=== PATIENT | male | born 1970 | race African-American/Black ===

== ENCOUNTER 2019-06-19 18:12 | Emergency (ER) | payer SELFPAY ==
[~2019-06-19] VITALS: Ht 193 cm; Wt 109.0 kg
[2019-06-19 18:59] LABS: BASO # 0.1 x10^3/uL (0.0-0.2); BASO % 1 % (0-3); EOS # 0.1 x10^3/uL (0.0-0.7); EOS % 2 % (0-3); HEMATOCRIT 46.8 % (39.0-53.0); HEMOGLOBIN 16.3 g/dL (13.0-17.5); LYMPH % 37 % (24-48); MEAN CORPUSCULAR HEMOGLOBIN 33 pg (25-35); MEAN CORPUSCULAR HGB CONC 35 g/dL (31-37); MEAN CORPUSCULAR VOLUME 94 fL (79-100); MONO # 0.6 x10^3/uL (0.0-1.1); MONO % 8 % (0-9); NEUT # 4.2 x10^3/uL (1.8-7.7); NEUT % 52 % (31-73); PLATELET COUNT 246 x10^3/uL (140-400); RED BLOOD COUNT 4.97 x10^6/uL (4.30-5.70)
[2019-06-19] MEDS ORDERED: IV NORMAL SALINE 1000ML BAG 1,000 ML IV ONE (19:00)
[2019-06-19 19:01] LABS: BILIRUBIN,URINE NEGATIVE (NEG); CLARITY,URINE CLEAR; COLOR,URINE YELLOW; NITRITE,URINE NEGATIVE (NEG); PROTEIN,URINE NEGATIVE (NEG-TRACE)
--- NOTE | 2019-06-19 19:04 | PHYS DOC ---
Past Medical History Past Medical History: Diabetes-Type II Past Surgical History: Other Additional Past Surgical Histo: bilateral kidney stents, for stones Smoking Status: Never Smoker Alcohol Use: Rarely Drug Use: None General Adult EDM: Chief Complaint: WEAKNESS/GENERALIZED HPI: HPI: Patient is a 49 year old male who presents with this morning got up and went to the gym and workout. He states he went home and felt pretty generalized weakness and fatigue. He states he laid down and went to sleep and had a "weird dream" and was startled awake. He states that he continues just to feel generalized weakness so he took his blood sugar and it was 250. He is a type II diabetic. He states that he feels like his blood pressure has been running a little high also. He states he has been very stressed about his children. Patient denies chest pain, abdominal pain, nausea, vomiting, diarrhea, fever, cough, shortness of breath, dizziness, numbness or tingling, focal weakness, vision changes, headache. Review of Systems: Review of Systems: Musculoskeletal: Denies back pain or joint pain. Generalized weakness. [] Heart Score: Risk Factors: Risk Factors: DM, Current or recent (<one month) smoker, HTN, HLP, family history of CAD, obesity. Risk Scores: Score 0 - 3: 2.5% MACE over next 6 weeks - Discharge Home Score 4 - 6: 20.3% MACE over next 6 weeks - Admit for Clinical Observation Score 7 - 10: 72.7% MACE over next 6 weeks - Early Invasive Strategies Current Medications: Current Medications Medications (Trade) Dose Ordered Sig/Shila Start Time Stop Time Status Last Admin Dose Admin Sodium Chloride 1,000 ml @ 1,000 mls/hr 1X ONCE 06/19/19 19:00 06/19/19 19:59 UNV Allergies: Allergies: Allergies Coded Allergies Type Severity Reaction Last Updated Verified No Known Drug Allergies 11/07/13 No Physical Exam: PE: Constitutional: Well developed, well nourished, no acute distress, non-toxic appearance. [] HENT: Normocephalic, atraumatic, bilateral external ears normal, oropharynx moist, no oral exudates, nose normal. [] Eyes: PERRLA, EOMI, conjunctiva normal, no discharge. [] Neck: Normal range of motion, no tenderness, supple, no stridor. [] Cardiovascular:Heart rate regular rhythm, no murmur [] Lungs & Thorax: Bilateral breath sounds clear to auscultation [] Abdomen: Bowel sounds normal, soft, no tenderness, no masses, no pulsatile masses. [] Skin: Warm, dry, no erythema, no rash. [] Back: No tenderness, no CVA tenderness. [] Extremities: No tenderness, no cyanosis, no clubbing, ROM intact, no edema. [] Neurologic: Alert and oriented X 3, normal motor function, normal sensory function, no focal deficits noted. [] Psychologic: Affect normal, judgement normal, mood normal. Normal physical exam [] EKG: EK and read by Dr Garcia. NSR and no STEMI[] Radiology/Procedures: Radiology/Procedures: [] Course & Med Decision Making: Course & Med Decision Making Pertinent Labs and Imaging studies reviewed. (See chart for details) Alert and oriented. Speaks in full clear sentences. Ambulatory with a steady gait. Skin pink warm and dry. Vital signs are within normal limits. Lungs are clear to auscultation all lobes. Abdomen is soft and nontender. No extremity swelling. PERRLA. Patient is hemodynamically stable. Chest x ray is read by Dr Garcia as no acute findings. Patient is discharged and can follow up with primary care physician. [] Ivon Disclaimer: Ivon Disclaimer: This electronic medical record was generated, in whole or in part, using a voice recognition dictation system. Departure Departure Impression: Primary Impression: Generalized weakness Disposition: 01 HOME, SELF-CARE Condition: STABLE Referrals: NO PCP (PCP) Patient Instructions: Weakness, [id number] Additional Instructions: Follow-up with your primary care provider. Drink plenty of fluids. Rest as much as possible. CONG GARRETT MICROGRAPHICS SERVICES SUPERVISOR Jun 19, 2019 19:04
[2019-06-19 19:05] LABS: BACTERIA,URINE 0 /HPF (0-FEW); RBC,URINE 0 /HPF (0-2); WBC,URINE 0 /HPF (0-4)
[2019-06-19 19:12] LABS: BARBITURATES NEG (NEG); BENZODIAZEPINES NEG (NEG); CANNABINOIDS NEG (NEG); COCAINE NEG (NEG); METHADONE NEG (NEG); OPIATES NEG (NEG); PHENCYCLIDINE NEG (NEG)
[2019-06-19 19:12] LABS: CALCIUM 9.4 mg/dL (8.5-10.1); CREATININE 1.2 mg/dL (0.7-1.3); GFR 78.5; POTASSIUM 3.7 mmol/L (3.5-5.1)
[2019-06-19 19:16] LABS: AMPHETAMINE/METHAMPHETAMINE NEG (NEG)
[2019-06-19 19:18] LABS: ALBUMIN 4.6 g/dL (3.4-5.0); ALBUMIN/GLOBULIN RATIO 1.4 (1.0-1.7); TOTAL BILIRUBIN 1.2 mg/dL (0.2-1.0); TOTAL PROTEIN 7.8 g/dL (6.4-8.2)
[2019-06-19 19:56] VITALS: BP 153/92
[2019-06-19 19:56] LABS: INFLUENZA A PATIENT NEGATIVE (NEGATIVE); INFLUENZA B PATIENT NEGATIVE (NEGATIVE)
--- NOTE | 2019-06-19 20:03 | EKG ---
[facility] [address] [place] [address] Test Date: 2019-06-19 Test Time: 19:07:31 Pat Name: LILY AYOUB Department: Room: Gender: M Speech Assistant: : 1970 Requested By: CONG GARRETT Order Number: [id number] Reading MD: Santi Zafar MD Measurements Intervals [place] Rate: 75 P: 32 MT: 174 QRS: 15 QRSD: 74 T: -1 QT: 366 QTc: 411 Interpretive Statements SINUS RHYTHM Electronically Signed On 06-21-2019 13:24:44 CDT by Santi Zafar MD
--- NOTE | 2019-06-19 20:51 | RAD ---
EXAM: CHEST 1 VIEW History: Weakness COMPARISON: 11/09/2006 TECHNIQUE: Single portable radiograph of the chest FINDINGS: The cardiac silhouette is unremarkable. The lungs are clear bilaterally. The costophrenic sulci are clear and well demarcated. IMPRESSION: No radiographic evidence of an acute cardiopulmonary process. Electronically signed by: Dedrick Yates MD (06/19/2019 8:48 PM) [id number]
== END 2019-06-19 20:35 | disposition home or self-care (01) ==
LOC: ER 18:12
DX: R53.1 Weakness (principal); R53.83 Other fatigue; E11.9 Type 2 diabetes mellitus without complications; Z98.890 Other specified postprocedural states
CPT/HCPCS: 36415; 71045; 80053; 80307; 81001; 84484; 85025; 87804; 93005; 99285; J7030

== ENCOUNTER 2020-01-18 19:05 | Emergency (ER) | payer SELFPAY ==
[~2020-01-18] VITALS: Ht 188 cm; Wt 106.8 kg
--- NOTE | 2020-01-18 20:01 | PHYS DOC ---
Past Medical History Past Medical History: Diabetes-Type II, Kidney Stone, Other Additional Past Medical Histor: "diet controlled" DM Past Surgical History: Other Additional Past Surgical Histo: bilateral kidney stents, for stones Smoking Status: Never Smoker Alcohol Use: Rarely Drug Use: None General Adult EDM: Chief Complaint: ABDOMINAL PAIN HPI: HPI: Patient is a 49 year old male with no past medical history currently on no prescription medications presents with a chief complaint of chest pain and abdominal pain. Patient states he woke up around 7 AM with pain just below his clavicle bilateral across his chest. Patient also states he had some abdominal discomfort which is just left to the umbilicus. Patient states pain is been constant since onset and he rates it a 7 out of 10. He describes the pain as achy. He states he has some nausea but has not vomited denies diarrhea and states he has a little bit of shortness of breath. Patient states with deep breaths his chest discomfort returns. On palpation patient's pain is reproducible both along his anterior chest and his abdomen. Patient states he has some nausea but has not vomited. Patient also stated he noted his blood pressure to be 170s 180s systolic. Review of Systems: Review of Systems: Constitutional: Denies fever or chills. [] Eyes: Denies change in visual acuity. [] HENT: Denies nasal congestion or sore throat. [] Respiratory: Positive shortness of breath Cardiovascular: Denies edema. [Positive chest pain ] GI: Denies abdominal pain, , vomiting, bloody stools or diarrhea. [Positive nausea positive abdominal ] : Denies dysuria. [] Musculoskeletal: Denies back pain or joint pain. [positive chest wall pain] Integument: Denies rash. [] Neurologic: Denies headache, focal weakness or sensory changes. [] Endocrine: Denies polyuria or polydipsia. [] Lymphatic: Denies swollen glands. [] Psychiatric: Denies depression or anxiety. [] Heart Score: HEART Score for Chest Pain: HEART Score for Chest Pain Response (Comments) Value History Slighlty/Non-Suspicious 0 ECG Normal 0 Age >45 - < 65 1 Risk Factors No Risk Factors 0 Troponin < Normal Limit 0 Total 1 Risk Factors: Risk Factors: DM, Current or recent (<one month) smoker, HTN, HLP, family history of CAD, obesity. Risk Scores: Score 0 - 3: 2.5% MACE over next 6 weeks - Discharge Home Score 4 - 6: 20.3% MACE over next 6 weeks - Admit for Clinical Observation Score 7 - 10: 72.7% MACE over next 6 weeks - Early Invasive Strategies Allergies: Allergies: Allergies Coded Allergies Type Severity Reaction Last Updated Verified No Known Drug Allergies 11/07/13 No Physical Exam: PE: Constitutional: Well developed, well nourished, no acute distress, non-toxic appearance. [] HENT: Normocephalic, atraumatic, bilateral external ears normal, oropharynx moist, no oral exudates, nose normal. [] Eyes: PERRLA, EOMI, conjunctiva normal, no discharge. [] Neck: Normal range of motion, no tenderness, supple, no stridor. [] Cardiovascular:Heart rate regular rhythm, no murmur [] Lungs & Thorax: Bilateral breath sounds clear to auscultation [] Abdomen: Bowel sounds normal, soft, no tenderness, no masses, no pulsatile masses. [] Skin: Warm, dry, no erythema, no rash. [] Back: No tenderness, no CVA tenderness. [] Extremities: No tenderness, no cyanosis, no clubbing, ROM intact, no edema. [] Neurologic: Alert and oriented X 3, normal motor function, normal sensory function, no focal deficits noted. [] Psychologic: Affect normal, judgement normal, mood normal. [] Current Patient Data: Vital Signs: Vital Signs Date Time Temp Pulse Resp B/P (MAP) Pulse Ox O2 Delivery O2 Flow Rate FiO2 01/18/20 19:43 98.6 116 16 178/95 (122) 96 Room Air 98.6 EKG: EKG: [] Radiology/Procedures: Radiology/Procedures: [] Impression: CHEST AP ONLY Clinical Indication: Reason: chest pain Comparison: AP chest June 19, 2019. Findings: The cardiomediastinal silhouette is normal. Lungs are clear. There is no pneumothorax. No pleural effusion is appreciated. No acute bone abnormality. IMPRESSION: No acute cardiopulmonary process. Electronically signed by: Chicho Bose MD (01/18/2020 8:51 PM) [facility] Course & Med Decision Making: Course & Med Decision Making Pertinent Labs and Imaging studies reviewed. (See chart for details) [] Dragon Disclaimer: Dragon Disclaimer: This electronic medical record was generated, in whole or in part, using a voice recognition dictation system. Departure Departure Impression: Primary Impression: Musculoskeletal chest pain Additional Impression: Nonspecific abdominal pain Disposition: 01 HOME SELF CARE/HOMELESS Condition: STABLE Referrals: NO PCP (PCP) Patient Instructions: Abdominal Pain (Nonspecific), Chest Wall Pain, Musculoskeletal Pain Scripts Tramadol Hcl (ULTRAM) 50 Mg Tablet 1 TAB PO PRN Q6HRS PRN for pain MDD 4 Tablet(s) for 7 Days, #28 TAB 0 Refills Prov: CLARENCE AVILA DO 01/18/20 Cyclobenzaprine Hcl (CYCLOBENZAPRINE HCL) 10 Mg Tablet 10 MG PO TID for 10 Days, #30 TAB Prov: CLARENCE AVILA DO 01/18/20 CLARENCE AVILA DO Jan 18, 2020 20:01
[2020-01-18] MEDS ORDERED: KETOROLAC 30 MG/ML VIAL. IVP ONE (20:15)
[2020-01-18 20:20] LABS: BASO # 0.1 x10^3/uL (0.0-0.2); BASO % 1 % (0-3); EOS # 0.2 x10^3/uL (0.0-0.7); EOS % 2 % (0-3); HEMATOCRIT 43.8 % (39.0-53.0); HEMOGLOBIN 15.4 g/dL (13.0-17.5); LYMPH # 2.9 x10^3/uL (1.0-4.8); LYMPH % 35 % (24-48); MEAN CORPUSCULAR HEMOGLOBIN 34 pg (25-35); MEAN CORPUSCULAR HGB CONC 35 g/dL (31-37); MEAN CORPUSCULAR VOLUME 95 fL (79-100); MONO # 0.6 x10^3/uL (0.0-1.1); MONO % 8 % (0-9); NEUT # 4.4 x10^3/uL (1.8-7.7); NEUT % 54 % (31-73); PLATELET COUNT 232 x10^3/uL (140-400); RED BLOOD COUNT 4.59 x10^6/uL (4.30-5.70); RED CELL DISTRIBUTION WIDTH 12.4 % (11.5-14.5); WHITE BLOOD COUNT 8.1 x10^3/uL (4.0-11.0)
[2020-01-18 20:26] LABS: CALCIUM 9.3 mg/dL (8.5-10.1); CREATININE 1.1 mg/dL (0.7-1.3); GFR 86.8; POTASSIUM 3.6 mmol/L (3.5-5.1)
[2020-01-18 20:31] LABS: ALBUMIN/GLOBULIN RATIO 1.3 (1.0-1.7); TOTAL BILIRUBIN 0.7 mg/dL (0.2-1.0); TOTAL PROTEIN 7.1 g/dL (6.4-8.2)
[2020-01-18] MEDS ORDERED: ASPIRIN CHEWABLE 81 MG TABLET. PO ONE (20:45)
--- NOTE | 2020-01-18 20:54 | RAD ---
CHEST AP ONLY Clinical Indication: Reason: chest pain Comparison: AP chest June 19, 2019. Findings: The cardiomediastinal silhouette is normal. Lungs are clear. There is no pneumothorax. No pleural effusion is appreciated. No acute bone abnormality. IMPRESSION: No acute cardiopulmonary process. Electronically signed by: Chicho Bose MD (01/18/2020 8:51 PM) [facility]
[2020-01-18 21:16] VITALS: BP 151/90
[2020-01-18] MEDS ORDERED: TRAM-48 PO (21:39)
[2020-01-18] MEDS ORDERED: CYCL10TA2 PO (21:39)
--- NOTE | 2020-01-19 03:08 | EKG ---
[facility] [address] [place] [address] Test Date: 2020-01-18 Test Time: 19:53:00 Pat Name: LILY AYOUB Department: Room: Gender: M Financial Management Consultant: : 1970 Requested By: CLARENCE AVILA Order Number: [id number] Reading MD: Measurements Intervals [place] Rate: 88 P: 46 MT: 154 QRS: 42 QRSD: 72 T: -10 QT: 362 QTc: 441 Interpretive Statements SINUS RHYTHM VENTRICULAR PREMATURE COMPLEX(ES) QRS(T) CONTOUR ABNORMALITY CONSISTENT WITH ANTEROSEPTAL INFARCT PROBABLY OLD T ABNORMALITY IN ANTERIOR LEADS ABNORMAL ECG RI6.01 No previous ECG available for comparison
== END 2020-01-18 21:45 | disposition home or self-care (01) ==
LOC: ER 19:05
DX: R07.89 Other chest pain (principal); R10.33 Periumbilical pain; R06.02 Shortness of breath; E11.9 Type 2 diabetes mellitus without complications; Z98.890 Other specified postprocedural states; Z87.891 Personal history of nicotine dependence
CPT/HCPCS: 36415; 71045; 80053; 83690; 84484; 85025; 93005; 96374; 99285; J1885

== ENCOUNTER 2020-11-12 11:53 | Emergency (ER) | payer SELFPAY ==
[~2020-11-12] VITALS: Ht 193 cm; Wt 109.0 kg
[~2020-11-12 11:53] MED LIST: CYCL10TA2 PO; TRAM-48 PO
--- NOTE | 2020-11-12 14:07 | PHYS DOC ---
Past Medical History Past Medical History: Diabetes-Type II, Hypertension, Kidney Stone, Other Additional Past Medical Histor: "diet controlled" DM Past Surgical History: Other Additional Past Surgical Histo: bilateral kidney stents, for stones Smoking Status: Never Smoker Alcohol Use: Occasionally Drug Use: None General Adult EDM: Chief Complaint: HYPERTENSION HPI: HPI: 50-year-old male with a history of hypertension but has never been formally diagnosed presents the emergency department complaining of an episode of chest discomfort after he exercised yesterday that has since resolved and he no longer has chest pain today. He states "I just do not feel right ". He currently denies any shortness of breath, chest pain, abdominal pain, nausea, vomiting, diarrhea or any other symptoms. He states that he would like to get treated for his blood pressure. He is trying to follow-up with her primary care doctor but has been unable to schedule an appointment. Review of Systems: Review of Systems: All other systems reviewed as negative except for what was mentioned in the HPI. Heart Score: C/O Chest Pain: Yes HEART Score for Chest Pain: HEART Score for Chest Pain Response (Comments) Value History Slighlty/Non-Suspicious 0 ECG Normal 0 Age >45 - < 65 1 Risk Factors 1 or 2 Risk Factors 1 Troponin < Normal Limit 0 Total 2 Allergies: Allergies: Allergies Coded Allergies Type Severity Reaction Last Updated Verified No Known Drug Allergies 11/07/13 No Physical Exam: PE: Constitutional: No acute distress, non-toxic appearance. HENT: Atraumatic, bilateral external ears normal, nose normal. Eyes: PERRLA, EOMI, conjunctiva normal, no discharge. Neck: Normal range of motion, supple, no stridor. Cardiovascular: Heart rate regular rhythm. 2+ radial pulses Lungs & Thorax: No respiratory distress, symmetrical expansion. Bilateral breath sounds clear to auscultation Abdomen: Soft, no tenderness Skin: Warm, dry. Extremities: No tenderness, no cyanosis, ROM intact, no edema. Neurologic: Alert and oriented X 3, normal motor function, normal sensory function, no focal deficits noted. Non ataxic gait. GCS 15. Psychologic: Affect normal, judgment normal, mood normal. Current Patient Data: Labs: Laboratory Tests Test 11/12/20 14:00 11/12/20 14:41 SARS-CoV-2 Antigen (Rapid) Negative (NEGATIVE) White Blood Count 6.1 x10^3/uL (4.0-11.0) Red Blood Count 4.53 x10^6/uL (4.30-5.70) Hemoglobin 15.3 g/dL (13.0-17.5) Hematocrit 43.7 % (39.0-53.0) Mean Corpuscular Volume 97 fL (79-100) Mean Corpuscular Hemoglobin 34 pg (25-35) Mean Corpuscular Hemoglobin Concent 35 g/dL (31-37) Red Cell Distribution Width 12.6 % (11.5-14.5) Platelet Count 220 x10^3/uL (140-400) Neutrophils (%) (Auto) 59 % (31-73) Lymphocytes (%) (Auto) 32 % (24-48) Monocytes (%) (Auto) 7 % (0-9) Eosinophils (%) (Auto) 1 % (0-3) Basophils (%) (Auto) 1 % (0-3) Neutrophils # (Auto) 3.6 x10^3/uL (1.8-7.7) Lymphocytes # (Auto) 1.9 x10^3/uL (1.0-4.8) Monocytes # (Auto) 0.4 x10^3/uL (0.0-1.1) Eosinophils # (Auto) 0.1 x10^3/uL (0.0-0.7) Basophils # (Auto) 0.0 x10^3/uL (0.0-0.2) Sodium Level 137 mmol/L (136-145) Potassium Level 3.9 mmol/L (3.5-5.1) Chloride Level 101 mmol/L (98-107) Carbon Dioxide Level 27 mmol/L (21-32) Anion Gap 9 (6-14) Blood Urea Nitrogen 14 mg/dL (8-26) Creatinine 1.1 mg/dL (0.7-1.3) Estimated GFR (Cockcroft-Gault) 86.4 Glucose Level 217 mg/dL (70-99) Calcium Level 8.8 mg/dL (8.5-10.1) Troponin I Quantitative < 0.017 ng/mL (0.000-0.055) ER-Enz-O-Type Natriuretic Peptide 17 pg/mL (0-124) Vital Signs: Vital Signs Date Time Temp Pulse Resp B/P (MAP) Pulse Ox O2 Delivery O2 Flow Rate FiO2 11/12/20 13:40 97.4 86 14 160/86 (110) 98 Room Air 97.4 EKG: EKG: Time read: 1440 Normal sinus rhythm rate of 73, no ST-T wave changes, no ectopic beats, normal axis, normal MN, QRS, and QTc intervals. Impression: Normal EKG. interpreted by meNola D.O. Radiology/Procedures: Radiology/Procedures: XR CHEST 1V History: Reason: chest pain / Spl. Instructions: / History: Comparison: January 18, 2020 Findings: Low lung volumes. Mild diffuse pulmonary opacities. No pleural effusion. No pneumothorax. Normal heart size. Impression: 1. Mild diffuse pulmonary opacities, can be seen with viral pneumonia. Electronically signed by: Abhay Sheppard DO (11/12/2020 2:27 PM)[] Course & Med Decision Making: Course & Med Decision Making Work-up as above largely negative, negative for Covid today, counseled on possible viral pneumonia. Patient appears well clinically on exam, feels better after interventions, we will start the patient on treatment for his hypertension and diabetes as requested by the patient. Advised the patient needs to follow-up with a primary care physician for further following up of his chronic illnesses. He was given information to establish care with a primary care physician of his choice. Departure Departure Impression: Primary Impression: Viral pneumonia Additional Impressions: Hypertension Diabetes Disposition: HOME / SELF CARE / HOMELESS Condition: STABLE Referrals: NO PCP (PCP) Patient Instructions: Upper Respiratory Infection, Adult, [id number] Additional Instructions: You were seen in the emergency department for a upper respiratory tract infection. You should return to the ED if you develop worsening cough, shortness of breath, chest pain, or any other new or concerning symptoms. You can use an OTC sinus rinse to help with sinus congestion. Your cough may persist for a few weeks but your other symptoms should gradually improve. You should make sure to drink plenty of fluids at home. Scripts Metformin Hcl (METFORMIN HCL) 500 Mg Tablet 500 MG PO BIDWMEALS for ANTI-DIABETIC, #60 TAB 0 Refills Prov: NOLA VASQUEZ DO 11/12/20 Amlodipine Besylate (AMLODIPINE BESYLATE) 5 Mg Tablet 5 MG PO DAILY for 30 Days, #30 TAB Prov: NOLA VASQUEZ DO 11/12/20 NOLA VASQUEZ DO Nov 12, 2020 14:07
--- NOTE | 2020-11-12 14:29 | RAD ---
XR CHEST 1V History: Reason: chest pain / Spl. Instructions: / History: Comparison: January 18, 2020 Findings: Low lung volumes. Mild diffuse pulmonary opacities. No pleural effusion. No pneumothorax. Normal hear t size. Impression: 1. Mild diffuse pulmonary opacities, can be seen with viral pneumonia. Electronically signed by: Abhay Sheppard DO (11/12/2020 2:27 PM) [facility]
[2020-11-12] MEDS ORDERED: hydrOXYzine 25 MG TABLET PO STA (14:49)
[2020-11-12 15:02] LABS: BASO % 1 % (0-3); EOS # 0.1 x10^3/uL (0.0-0.7); EOS % 1 % (0-3); HEMATOCRIT 43.7 % (39.0-53.0); HEMOGLOBIN 15.3 g/dL (13.0-17.5); LYMPH # 1.9 x10^3/uL (1.0-4.8); LYMPH % 32 % (24-48); MEAN CORPUSCULAR HEMOGLOBIN 34 pg (25-35); MEAN CORPUSCULAR HGB CONC 35 g/dL (31-37); MEAN CORPUSCULAR VOLUME 97 fL (79-100); MONO # 0.4 x10^3/uL (0.0-1.1); MONO % 7 % (0-9); NEUT # 3.6 x10^3/uL (1.8-7.7); NEUT % 59 % (31-73); PLATELET COUNT 220 x10^3/uL (140-400); RED BLOOD COUNT 4.53 x10^6/uL (4.30-5.70); RED CELL DISTRIBUTION WIDTH 12.6 % (11.5-14.5); WHITE BLOOD COUNT 6.1 x10^3/uL (4.0-11.0)
[2020-11-12 15:07] LABS: CALCIUM 8.8 mg/dL (8.5-10.1); CREATININE 1.1 mg/dL (0.7-1.3); GFR 86.4; POTASSIUM 3.9 mmol/L (3.5-5.1)
[2020-11-12] MEDS ORDERED: AMLO-186 PO (17:31)
[2020-11-12] MEDS ORDERED: METF500T16 PO (17:31)
[2020-11-12 17:43] VITALS: BP 150/91
--- NOTE | 2020-11-13 00:13 | EKG ---
[facility] [address] [place] [address] Test Date: 2020-11-12 Test Time: 14:38:28 Pat Name: LILY AYOUB Department: Room: Gender: M Supervisor Hand Workers: : 1970 Requested By: NOLA VASQUEZ Order Number: [id number] Reading MD: Measurements Intervals [place] Rate: 73 P: 31 DE: 172 QRS: 24 QRSD: 74 T: -3 QT: 360 QTc: 400 Interpretive Statements SINUS RHYTHM OTHERWISE NORMAL ECG RI6.02 No previous ECG available for comparison
--- NOTE | 2020-11-14 15:12 | NUR ---
IP: Informed pt of negative covid test. Pt verbalized understanding.
== END 2020-11-12 17:50 | disposition home or self-care (01) ==
LOC: ER 11:53
DX: J12.9 Viral pneumonia, unspecified (principal); Z20.822 Contact with and (suspected) exposure to COVID-19; I10 Essential (primary) hypertension; E11.9 Type 2 diabetes mellitus without complications
CPT/HCPCS: 36415; 71045; 80048; 83880; 84484; 85025; 87426; 93005; 99285; U0003; U0005